=== PATIENT | male | born 1985 | race Caucasian/White ===

== ENCOUNTER 2024-04-01 00:43 | Observation (INO) | payer SELFPAY ==
[2024-04-01] VITALS (9 sets, daily range): BP systolic 122–140; BP diastolic 74–97; TEMP 97.2–98.1; O2SAT 92–96
[~2024-04-01] VITALS: Ht 182.9 cm; Wt 99.9 kg
[2024-04-01 02:21] LABS: BASO % 0.2 % (0.0-1.0); EOS # 0.2 10^3/uL (0.0-0.5); EOS % 1.4 % (0.0-3.0); HEMATOCRIT 44.2 % (42.0-52.0); HEMOGLOBIN 16.1 g/dl (13.5-17.5); LYMPH # 2.5 10^3/uL (1.5-5.0); LYMPH % 14.8 % (24.0-44.0); MEAN CORPUSCULAR HEMOGLOBIN 34.5 pg (27.0-33.0); MEAN CORPUSCULAR HGB CONC 36.4 g/dl (32.0-36.5); MEAN CORPUSCULAR VOLUME 94.6 fl (80.0-96.0); MONO # 1.4 10^3/uL (0.0-0.8); NEUTROPHILS # 12.8 10^3/uL (1.5-8.5); NEUTROPHILS % 75.2 % (36.0-66.0); PLATELET COUNT, AUTOMATED 223 10^3/uL (150-450); RED BLOOD COUNT 4.67 10^6/uL (4.30-6.10)
[2024-04-01 02:27] LABS: LIPASE 32 U/L (12-53)
[2024-04-01 02:29] LABS: ALBUMIN 4.3 G/DL (3.2-5.2); ALKALINE PHOSPHATASE 48 U/L (46-116); ALT/SGPT 27 U/L (7.0-40); AST/SGOT 11 U/L (<34); BILIRUBIN,DIRECT 0.1 MG/DL (<0.4); BILIRUBIN,TOTAL 0.6 MG/DL (0.3-1.2); BLOOD UREA NITROGEN 10 MG/DL (9-23); CALCIUM LEVEL 9.7 MG/DL (8.5-10.1); CARBON DIOXIDE LEVEL 29 MMOL/L (20-31); CHLORIDE LEVEL 102 MMOL/L (98-107); CREATININE FOR GFR 1.11 MG/DL (0.70-1.30); GLOMERULAR FILTRATION RATE > 60.0 (>60); GLUCOSE, FASTING 117 MG/DL (60-100); POTASSIUM SERUM 4.2 MMOL/L (3.5-5.1); SODIUM LEVEL 134 MMOL/L (136-145); TOTAL PROTEIN 7.1 G/DL (5.7-8.2)
[2024-04-01] MEDS: KETOROLAC 30 MG/ML 1ML VIAL IV ONE (03:11)
[2024-04-01] MEDS ORDERED: ISOVUE-370 76% 100ML VIAL As Ordered ONE (03:35)
[2024-04-01] MEDS: PIPERACILLIN/TAZOBACTAM SOD 4.5 GM in D5W MINI-BAG PLUS 50 ML IV ONE (07:10)
[2024-04-01] MEDS ORDERED: HOME MED LIST COMPLETE! XX SCH (07:10)
[2024-04-01] MEDS: ONDANSETRON 4MG 2ML VIAL IV ONE (07:14)
[2024-04-01] MEDS: MORPHINE 4 MG/ML 1ML VIAL IV PRN (07:15)
[2024-04-01] MEDS ORDERED: ROCURONIUM BROMIDE 50MG/5ML VIAL As Ordered ONE (08:43)
[2024-04-01] MEDS ORDERED: LIDOCAINE 2% 100MG/5ML SDV (FOR ANES.) As Ordered ONE (08:43)
[2024-04-01] MEDS ORDERED: KETOROLAC 60MG 2ML VIAL As Ordered ONE (08:43)
[2024-04-01] MEDS ORDERED: propofoL 200 MG/20 ML VIAL As Ordered ONE (08:43)
[2024-04-01] MEDS ORDERED: SUGAMMADEX SODIUM 500 MG/5 ML VIAL (BRIDION) As Ordered ONE (08:43)
[2024-04-01] MEDS ORDERED: fentaNYL 250 MCG/5 ML INJECTION As Ordered ONE (08:43)
[2024-04-01] MEDS ORDERED: MIDAZOLAM INJ 2MG/2ML VIAL As Ordered ONE (08:43)
[2024-04-01] MEDS ORDERED: ONDANSETRON 4MG 2ML VIAL As Ordered ONE (08:43)
[2024-04-01] MEDS ORDERED: ACETAMINOPHEN 1000MG 100ML IV BAG As Ordered ONE (08:44)
[2024-04-01] MEDS ORDERED: LABETALOL 100MG/20ML VIAL As Ordered ONE (10:48)
[2024-04-01] MEDS ORDERED: SUCCINYLCHOLINE 100MG/5ML SYRINGE As Ordered ONE (10:48)
[2024-04-01] MEDS ORDERED: PHENYLephrine 500MCG 5ML (100MCG/ML) SYRINGE As Ordered ONE (11:05)
[2024-04-01] MEDS ORDERED: diphenhydrAMINE 50MG/ML VIAL IV PRN (11:35)
[2024-04-01] MEDS ORDERED: fentaNYL 100 MCG/2 ML INJECTION IV PRN (11:35)
[2024-04-01] MEDS ORDERED: ONDANSETRON 4MG 2ML VIAL IV PRN (11:35)
[2024-04-01] MEDS ORDERED: oxyCODONE 5MG TAB PO PRN (11:35)
[2024-04-01] MEDS ORDERED: METOCLOPRAMIDE INJ 10MG/2ML VIAL IV PRN (11:35)
[2024-04-01] MEDS ORDERED: HYDROMORPHONE HCL 0.5 MG/ 0.5 ML SYRINGE IV PRN (11:35)
[2024-04-01] MEDS: PIPERACILLIN/TAZOBACTAM SOD 3.375 GM in D5W MINI-BAG PLUS 50 ML IV SCH (12:45)
[2024-04-01] MEDS: PANTOPRAZOLE 40MG VIAL IV SCH (12:45)
[2024-04-01] MEDS: ONDANSETRON 4MG 2ML VIAL IV SCH (12:45)
[2024-04-01] MEDS ORDERED: MORPHINE 4 MG/ML 1ML VIAL IV PRN (13:50)
[2024-04-01] MEDS: ACETAMINOPHEN 500 MG TAB PO PRN (14:14)
[2024-04-01] MEDS: PERCOCET 5MG/325MG TAB PO PRN (18:17)
[2024-04-01] MEDS: RAMELTEON 8 MG TAB (ROZEREM) PO SCH (22:22)
[2024-04-02] VITALS: BP 126/77; TEMP 98.4; O2SAT 96
[2024-04-02 06:05] VITALS: BP 118/79; TEMP 97.3; O2SAT 96
[2024-04-02 06:47] LABS: HEMATOCRIT 38.2 % (42.0-52.0); MEAN CORPUSCULAR HEMOGLOBIN 34.2 pg (27.0-33.0); MEAN CORPUSCULAR HGB CONC 35.3 g/dl (32.0-36.5); MEAN CORPUSCULAR VOLUME 96.7 fl (80.0-96.0); PLATELET COUNT, AUTOMATED 182 10^3/uL (150-450); RED BLOOD COUNT 3.95 10^6/uL (4.30-6.10); WHITE BLOOD COUNT 12.9 10^3/uL (4.0-10.0)
[2024-04-02 06:51] LABS: HEMOGLOBIN 13.5 g/dl (13.5-17.5)
[2024-04-02 07:15] LABS: ALBUMIN 3.3 G/DL (3.2-5.2); ALKALINE PHOSPHATASE 40 U/L (46-116); ALT/SGPT 23 U/L (7.0-40); AST/SGOT 21 U/L (<34); BILIRUBIN,TOTAL 0.4 MG/DL (0.3-1.2); BLOOD UREA NITROGEN 12 MG/DL (9-23); CALCIUM LEVEL 8.6 MG/DL (8.5-10.1); CARBON DIOXIDE LEVEL 29 MMOL/L (20-31); CHLORIDE LEVEL 103 MMOL/L (98-107); CREATININE FOR GFR 1.15 MG/DL (0.70-1.30); GLOMERULAR FILTRATION RATE > 60.0 (>60); GLUCOSE, FASTING 130 MG/DL (60-100); POTASSIUM SERUM 4.1 MMOL/L (3.5-5.1); SODIUM LEVEL 136 MMOL/L (136-145); TOTAL PROTEIN 6.1 G/DL (5.7-8.2)
[2024-04-02 08:21] VITALS: BP 109/72; TEMP 97.5; O2SAT 95
[2024-04-02 12:52] VITALS: BP 123/74; TEMP 98.1; O2SAT 96
[2024-04-02 21:37] VITALS: BP 121/76; TEMP 97.7; O2SAT 96
[2024-04-03 04:00] VITALS: BP 124/69; TEMP 98.5; O2SAT 94
[2024-04-03 08:39] LABS: BASO % 0.5 % (0.0-1.0); EOS # 0.1 10^3/uL (0.0-0.5); EOS % 1.6 % (0.0-3.0); HEMATOCRIT 43.3 % (42.0-52.0); HEMOGLOBIN 14.5 g/dl (13.5-17.5); LYMPH # 2.5 10^3/uL (1.5-5.0); LYMPH % 29.4 % (24.0-44.0); MEAN CORPUSCULAR HEMOGLOBIN 33.7 pg (27.0-33.0); MEAN CORPUSCULAR HGB CONC 33.5 g/dl (32.0-36.5); MEAN CORPUSCULAR VOLUME 100.7 fl (80.0-96.0); MONO # 0.6 10^3/uL (0.0-0.8); MONO % 7.1 % (2.0-8.0); NEUTROPHILS # 5.2 10^3/uL (1.5-8.5); PLATELET COUNT, AUTOMATED 217 10^3/uL (150-450); WHITE BLOOD COUNT 8.5 10^3/uL (4.0-10.0)
[2024-04-03 09:12] LABS: BLOOD UREA NITROGEN 8 MG/DL (9-23); CALCIUM LEVEL 9.1 MG/DL (8.5-10.1); CARBON DIOXIDE LEVEL 30 MMOL/L (20-31); CHLORIDE LEVEL 104 MMOL/L (98-107); CREATININE FOR GFR 1.24 MG/DL (0.70-1.30); GLOMERULAR FILTRATION RATE > 60.0 (>60); GLUCOSE, FASTING 119 MG/DL (60-100); MAGNESIUM LEVEL 2.1 MG/DL (1.8-2.4); SODIUM LEVEL 138 MMOL/L (136-145)
[2024-04-03] MEDS ORDERED: AMOX875T2 PO (10:44)
[2024-04-03] MEDS ORDERED: ACET-683 PO (10:44)
[2024-04-03] MEDS ORDERED: PERCOCET PO (10:44)
[2024-04-03 12:00] VITALS: BP 120/72; TEMP 97.7; O2SAT 96
== END 2024-04-03 13:20 | disposition home or self-care (01) ==
LOC: M ED 00:43 → M ED INP 07:34 → M MS5PR 12:20
PROVIDERS: ADMIT Hospitalist; ATTEND Hospitalist
DX: K35.890 Other acute appendicitis without perforation or gangrene (principal); A41.9 Sepsis, unspecified organism; D72.829 Elevated white blood cell count, unspecified; I10 Essential (primary) hypertension; F17.218 Nicotine dependence, cigarettes, with other nicotine-induced disorders
CPT/HCPCS: 36415; 44970; 74177; 80048; 80053; 80076; 83605; 83690; 83735; 85025; 85027; 86140; 87040; 87641; 88302; 93005; 96365; 96366; 96375; 96376; 99285; J0131; J0330; J0665; J1100; J1885; J1920; J2250; J2371; J2405; J2470; J2543; J3010; Q9967; S2900